=== PATIENT | female | born 1960 | race Caucasian/White ===

== ENCOUNTER 2017-08-07 07:31 | Day surgery (SDC) | payer OTHER ==
[2017-08-07] MEDS ORDERED: LIDOCAINE 4% SOLUTION 50 ML BTL (09:13)
[2017-08-07] MEDS ORDERED: FENTAnyl 50 MCG/ML VIAL (09:57)
[2017-08-07] MEDS ORDERED: MIDAZOLAM 1 MG/ML 2 ML INJ ×2 (09:58)
== END 2017-08-07 16:03 | disposition home or self-care (01) ==
LOC: GIL 07:31
DX: Z12.11 Encounter for screening for malignant neoplasm of colon (principal); K29.50 Unspecified chronic gastritis without bleeding; K57.30 Diverticulosis of large intestine without perforation or abscess without bleeding; K64.8 Other hemorrhoids; K64.4 Residual hemorrhoidal skin tags
CPT/HCPCS: 43239; 88305; 88312